=== PATIENT | female | born 1955 | race Caucasian/White ===

== ENCOUNTER 2022-11-29 14:47 | Outpatient (CLI) | payer MEDICARE, SELFPAY ==
[2022-12-02 08:50] LABS: Immunoglobulin A 103 mg/dL (70-320); TTG IGA AB <1.0 U/mL (<15.0)
== END 2022-11-29 14:48 | disposition home or self-care (01) ==
LOC: ANHGOSHLAB 14:51
PROVIDERS: PCP Family Medicine; Visit Provider Family Medicine
DX: R19.7 Diarrhea, unspecified (principal)
CPT/HCPCS: 36415; 82784; 86364

== ENCOUNTER 2022-12-03 09:16 | Outpatient (CLI) | payer MEDICARE, SELFPAY ==
[2022-12-03 11:34] LABS: Kit Draw Collected
== END 2022-12-03 09:17 | disposition home or self-care (01) ==
LOC: ANHGOSHLAB 09:18
PROVIDERS: PCP Family Medicine; Visit Provider Family Medicine
DX: E53.8 Deficiency of other specified B group vitamins (principal); E55.9 Vitamin D deficiency, unspecified; E78.5 Hyperlipidemia, unspecified; R19.7 Diarrhea, unspecified; Z79.899 Other long term (current) drug therapy
CPT/HCPCS: 36415

== ENCOUNTER 2022-12-03 11:19 | Outpatient (CLI) | payer MEDICARE, SELFPAY ==
[2022-12-03 13:14] LABS: Toxigenic C. Diff NEGATIVE (NEGATIVE)
== END 2022-12-03 11:20 | disposition home or self-care (01) ==
PROVIDERS: PCP Family Medicine; Visit Provider Family Medicine
DX: R19.7 Diarrhea, unspecified (principal)
CPT/HCPCS: 36415; 87045; 87177; 87209; 87427; 87493; 89055

== ENCOUNTER 2023-07-17 10:37 | Emergency (ER) | payer MEDICARE, SELFPAY ==
[2023-07-17 10:44] VITALS: BP 140/77; PULSE 74; RESP 16; TEMP 36.9; O2SAT 100
--- NOTE | 2023-07-17 10:56 | ED.GENADULT ---
HPI - General Adult General Chief complaint: Urogenital-Female Stated complaint: Bladder Infection Symptoms Source: patient, RN notes reviewed and old records reviewed Mode of arrival: ambulatory Limitations: no limitations History of Present Illness HPI narrative: 68-year-old female presents to [facility] with complaints burning with urination, urgency, frequency that started overnight. Patient states he is having some lower abdominal pain. Patient denies back pain, fever, vomiting. Related Data Home Medications Medication Instructions Recorded Confirmed Lactobacillus 1 cap PO DAILY 11/29/22 07/17/23 acidophil,plantar-Bifido no.7 15 billion cell capsule (up4 Probiotics Adult) multivitamin 1 tablet PO DAILY 11/29/22 07/17/23 mecobalamin (vitamin B12) 1,000 1,000 mcg PO DAILY 06/22/23 07/17/23 mcg chewable tablet Allergies Allergy/AdvReac Type Severity Reaction Status Date / Time latex Allergy Unknown Skin Verified 07/17/23 10:51 Reaction levofloxacin Allergy Unknown upset Verified 07/17/23 10:51 stomach NSAIDS (Non-Steroidal Allergy Unknown stomach Verified 07/17/23 10:51 Anti-Inflamma pain Penicillins Allergy Unknown Skin Verified 07/17/23 10:51 Reaction Sulfa (Sulfonamide Allergy Unknown Skin Verified 07/17/23 10:51 Antibiotics) Reaction Review of Systems Constitutional: Constitutional: Reports no additional constitutional complaints, Denies body ache(s), Denies chills, Denies fatigue, Denies fever(s) and Denies headache(s) Eyes: Eyes: Reports no additional eye complaints and Denies blurry vision ENT: Reports system reviewed and no additional complaints, except as documented, Denies vertigo, Denies dizziness, Denies ear discharge, Denies otalgia, Denies facial pain, Denies headache(s), Denies nasal congestion, Denies nasal discharge, Denies sinus pain, Denies sinus pressure and Denies sore throat Cardiovascular: Cardiovascular: Reports no additional cardiovascular complaints, Denies chest pain, Denies chest pain at rest, Denies rapid heart rate and Denies dyspnea Respiratory: Respiratory: Reports no additional respiratory complaints, Denies chest congestion, Denies cough, Denies pain on inspiration, Denies pain with cough and Denies dyspnea Gastrointestinal: Gastrointestinal: Reports abdominal pain, Denies diarrhea, Denies nausea and Denies vomiting Genitourinary: Genitourinary: Reports nocturia, Reports dysuria and Reports urinary urgency Integumentary/Breasts: Skin/Breast: Denies rash Neurologic: Reports system reviewed and no additional complaints, except as documented, Denies vertigo, Denies dizziness and Denies headache(s) Endocrine: Endocrine: Denies fatigue PMFSH Past Medical History Medical History Herpes zoster with unspecified nervous system complication History of duodenal ulcer 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 Hyperlipemia Peripheral vertigo, unspecified Sarcoidosis Ulcer Surgical History Surgical History H/O eye surgery (~1974) right eye 1957 Strabismus History of cholecystectomy (~2002) Hx of tonsillectomy (~1963) Family History Family History Mother Diabetes mellitus Thyroid disorder Father Cancer Depression Anxiety Sibling Diabetes mellitus Grandparent Cancer Social History Social History Social History: Caffeine- decaf tea Smoking status: Never smoker Alcohol intake: current Alcohol use details: red wine Substance use: never Substance use type: does not use Lack of Transportation: No Lack of Food: Never True Current Housing: I Have Housing Concerned About Future Housing: No Difficulty Paying Gas/Electric Bills: No Difficulty Paying for Meds: No Currently Unemploye
== END 2023-07-17 11:07 | disposition home or self-care (01) ==
PROVIDERS: Emergency Provider Registered Nurse; PCP Family Medicine
DX: N39.0 Urinary tract infection, site not specified (principal); E78.5 Hyperlipidemia, unspecified; Z79.899 Other long term (current) drug therapy
CPT/HCPCS: 81003; 87086; 99213; G0463

== ENCOUNTER 2023-09-16 11:33 | Emergency (ER) | payer MEDICARE, SELFPAY ==
[2023-09-16] VITALS (7 sets, daily range): BP systolic 107–166; BP diastolic 48–91; PULSE 72–85; RESP 15–17; TEMP 36.6–36.7; O2SAT 96–100
--- NOTE | ~2023-09-16 | XR_ITS ---
EXAMINATION: XR chest 2V 09/16/2023 12:19 INDICATION: Chest pain and shortness of breath PROCEDURE: 2 view chest COMPARISON: No prior studies for comparison. FINDINGS: The lungs are clear. The cardiomediastinal silhouette is within normal limits. There are no pleural effusions. There is no pneumothorax suspected. IMPRESSION: 1: NO ACUTE CARDIOPULMONARY DISEASE. Reviewed, dictated and finalized at location B.
--- NOTE | 2023-09-16 11:36 | ECG_ITS ---
SEE SCANNED COPY FOR CONFIRMED REPORT MTDD
[2023-09-16 12:03] LABS: Basophils Percent Auto 0.5 % (0.2-1.2); Eosinophils Absolute Auto 0.3 K/mm3 (0-0.3); Eosinophils Percent Auto 4.3 % (0-4.4); Hematocrit 46.1 % (37.0-47.0); Hemoglobin 15.6 g/dL (12.0-15.0); Immature Granulocyte Absolute 0.02 K/mm3 (0.00-0.031); Immature Granulocyte Percent A 0.3 % (0-0.5); Lymphocytes Absolute Auto 1.82 K/mm3 (0.9-3.2); Lymphocytes Percent Auto 31.3 % (18.3-44.2); Mean Corpuscular HGB Conc 33.8 g/dl (32-36); Mean Corpuscular Hemoglobin 31.6 pg (26-34); Mean Corpuscular Volume 93.3 fl (80-100); Mean Platelet Volume 10.1 fl (7.4-10.4); Monocytes Absolute Auto 0.3 K/mm3 (0.1-0.6); Monocytes Percent Auto 5.2 % (2.6-8.5); Neutrophils Absolute Auto 3.4 K/mm3 (1.3-6.7); Neutrophils Percent Auto 58.4 % (45.5-73.1); Platelet Count Result 204 k/mm3 (150-375); Red Blood Count 4.94 M/mm3 (4.2-5.4); Red Cell Distribution Width 13.3 % (11.5-14.5); White Blood Count 5.8 K/mm3 (4.5-10.0)
[2023-09-16 12:13] LABS: Alanine Aminotransferase 25 U/L (6-35); Albumin Level 4.9 g/dL (3.5-5.1); Alkaline Phosphatase 80 U/L (38-126); Anion Gap 8 mmol/L (4-12); Aspartate Amino Transferase 31 U/L (14-36); Bilirubin,Total 0.7 mg/dL (0.2-1.3); Blood Urea Nitrogen 14 mg/dL (7-17); Calcium 9.6 mg/dL (8.4-10.2); Carbon Dioxide 28 mmol/L (22-30); Chloride 101 mmol/L (98-107); Estimated CRCL calculation 69 ml/min; Estimated Glomerular Filt Rate > 60; Glucose 146 mg/dL (65-110); Lipase 216 U/L (23-300); Potassium 3.8 mmol/L (3.4-5.0); Sodium 137 mmol/L (137-145)
[2023-09-16 12:15] LABS: INR 0.9; Prothrombin Time 12.6 Seconds (11.1-14.7)
[2023-09-16 12:16] LABS: Partial Thromboplastin Time 29.8 Seconds (22.3-36.8)
[2023-09-16 12:25] LABS: Troponin I < 0.012 ng/mL (0.000-0.034)
--- NOTE | 2023-09-16 12:49 | ED.CHESTPAIN ---
HPI - Chest Pain General Chief Complaint: Chest Pain Stated Complaint: Chest Pain Time Seen by Provider: 09/16/23 11:59 History of Present Illness HPI narrative: 68-year-old female presenting to the emergency department for evaluation for an episode of generalized weakness and subsequent chest pain. Patient reports this morning she did have labs drawn this morning and had a very small breakfast. Patient states after having the labs drawn she had onset of some generalized weakness and shakiness. Patient decided that she probably needed to have food so she went to grab breakfast and while waiting for breakfast she had onset left-sided chest pain that radiated into her left arm, outpatient reports the pain lasted approximately 10 minutes. Upon arrival to the emergency department patient states that her symptoms have resolved and patient denies any current chest pain shortness of breath or generalized weakness. Patient states her only complaint at this time is that she does feel chilled. At time of evaluation patient is in no distress. Related Data Home Medications Medication Instructions Recorded Confirmed Lactobacillus 1 cap PO DAILY 11/29/22 07/20/23 acidophil,plantar-Bifido no.7 15 billion cell capsule (up4 Probiotics Adult) multivitamin 1 tablet PO DAILY 11/29/22 07/20/23 mecobalamin (vitamin B12) 1,000 1,000 mcg PO DAILY 06/22/23 07/20/23 mcg chewable tablet Allergies Allergy/AdvReac Type Severity Reaction Status Date / Time nitrofurantoin Allergy Intermediate Headache Verified 09/16/23 11:47 [From Macrobid] latex Allergy Unknown Skin Verified 09/16/23 11:47 Reaction levofloxacin Allergy Unknown upset Verified 09/16/23 11:47 stomach NSAIDS (Non-Steroidal Allergy Unknown stomach Verified 09/16/23 11:47 Anti-Inflamma pain Penicillins Allergy Unknown Skin Verified 09/16/23 11:47 Reaction Sulfa (Sulfonamide Allergy Unknown Skin Verified 09/16/23 11:47 Antibiotics) Reaction Review of Systems Review of Systems: All systems reviewed & are unremarkable except as noted in HPI and below PMFSH Past Medical History Medical History Herpes zoster with unspecified nervous system complication History of duodenal ulcer 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 Hyperlipemia Peripheral vertigo, unspecified Sarcoidosis Ulcer Surgical History Surgical History H/O eye surgery (~1974) right eye 1957 Strabismus History of cholecystectomy (~2002) Hx of tonsillectomy (~1963) Family History Family History Mother Diabetes mellitus Thyroid disorder Father Cancer Depression Anxiety Sibling Diabetes mellitus Grandparent Cancer Social History Social History Social History: Caffeine- decaf tea Smoking status: Never smoker Alcohol intake: current Alcohol use details: red wine Substance use: never Substance use type: does not use Lack of Transportation: No Lack of Food: Never True Current Housing: I Have Housing Concerned About Future Housing: No Difficulty Paying Gas/Electric Bills: No Difficulty Paying for Meds: No Currently Unemployed: No Education: Master's Degree or Higher Difficulty w/ Childcare or Family Care: No Living arrangements: with family Occupation/Education: retired Gender identity (if verbalized by the patient): Female Exam Narrative: APPEARANCE: Well appearing, no pain, no distress, well-nourished. HEAD: normocephalic, atraumatic. EYES: PERRLA/EOMI, conjunctivae clear. NOSE: Normal no drainage EARS:TMS clear with good light reflex. THROAT: Pharynx clear, no exudate. NECK: Supple. No adenopathy, no masses. RESPIRATORY: Airway patent, respirations nonlabored. Clear to auscultation bilaterally, no rales, rhonchi, wheezing. CARDIOVASCULAR: Regular rate and rhythm without murmurs rubs or gallops. ABDOMINAL: Soft, nontender, nondistended, normal bowel sounds MUSCULOSKELETAL: Moves all extremities. Strength/ROM intact, No edema, No calf tenderness. NEURO: Alert. Cranial nerves II through XII intact. Grossly intact SKIN: Warm, dry. Normal Color Course Vital Signs Vital signs: Vital Signs Temperature 97.9 F 09/16/23 11:40 Pulse Rate 81 09/16/23 11:40 Respiratory Rate 16 09/16/23 11:40 Blood Pressure 166/91 H 09/16/23 11:40 Pulse Oximetry 100 09/16/23 11:40 Oxygen Delivery Room Air 09/16/23 11:40 Temperature 98.0 F 09/16/23 15:30 Pulse Rate 72 09/16/23 15:30 Respiratory Rate 16 09/16/23 15:30 Blood Pressure 107/48 L 09/16/23 15:30 Pulse Oximetry 99 09/16/23 15:30 Oxygen Delivery Room Air 09/16/23 12:12 MDM - Chest Pain MDM Narrative Medical decision making narrative: 68-year-old female presenting to the emergency department for evaluation of brief episode of generalized weakness shakiness and left arm pain. Patient is afebrile with no leukocytosis and a stable hemoglobin patient's CMP has no acute abnormalities and patient was told troponin was negative. Chest x-ray shows no acute cardiopulmonary abnormality. EKG shows normal sinus rhythm with nonspecific ST changes. Patient did have negative serial troponins Differential Diagnosis Differential diagnosis: Likely pneumothorax, unstable angina pectoris, atypical chest pain, st elevation myocardial infarction and chest pain Lab Data 09/16/23 11:57 09/16/23 11:57 Labs: Lab Results 09/16/23 09/16/23 Range/Units 11:57 14:46 WBC 5.8 (4.5-10.0) K/mm3 RBC 4.94 (4.2-5.4) M/mm3 Hgb 15.6 H (12.0-15.0) g/dL Hct 46.1 (37.0-47.0) % MCV 93.3 (80-100) fl MCH 31.6 (26-34) pg MCHC 33.8 (32-36) g/dl RDW 13.3 (11.5-14.5) % Plt Count 204 (150-375) k/mm3 MPV 10.1 (7.4-10.4) fl Immature Gran % (Auto) 0.3 (0-0.5) % Neut % (Auto) 58.4 (45.5-73.1) % Lymph % (Auto) 31.3 (18.3-44.2) % [place] % (Auto) 5.2 (2.6-8.5) % Eos % (Auto) 4.3 (0-4.4) % Baso % (Auto) 0.5 (0.2-1.2) % Lymph # (Auto) 1.82 (0.9-3.2) K/mm3 [place] # (Auto) 0.3 (0.1-0.6) K/mm3 Eos # (Auto) 0.3 (0-0.3) K/mm3 Baso # (Auto) 0.0 (0.0-0.1) K/mm3 Abs Immat Gran (auto) 0.02 (0.00-0.031) K/mm3 Absolute Neuts (auto) 3.4 (1.3-6.7) K/mm3 Absolute Nucleated RBC 0.000 (0.0-0.012) K/mm3 Nucleated RBC % 0.0 (0.0-0.2) % PT 12.6 (11.1-14.7) Seconds INR 0.9 APTT 29.8 (22.3-36.8) Seconds Sodium 137 (137-145) mmol/L Potassium 3.8 (3.4-5.0) mmol/L Chloride 101 (98-107) mmol/L Carbon Dioxide 28 (22-30) mmol/L Anion Gap 8 (4-12) mmol/L BUN 14 (7-17) mg/dL Creatinine 0.60 L (0.7-1.0) mg/dL Estim Creat Clear Calc 69 ml/min Estimated GFR > 60 (59 - ) Glucose 146 H (65-110) mg/dL Calcium 9.6 (8.4-10.2) mg/dL Total Bilirubin 0.7 (0.2-1.3) mg/dL AST 31 (14-36) U/L ALT 25 (6-35) U/L Alkaline Phosphatase 80 (38-126) U/L Troponin I < 0.012 < 0.012 (0.000-0.034) ng/mL Total Protein 8.0 (6.3-8.2) g/dL Albumin 4.9 (3.5-5.1) g/dL Lipase 216 (23-300) U/L Discharge Plan Discharge Clinical Impression: Atypical chest pain Patient Disposition: Home, Self-Care Condition: Stable Instructions: Antibiotic Form, Chest Pain (ED) Additional Instructions: have close follow-up with primary care physician for additional outpatient cardiac testing. If you have any worsening symptoms then please call or return to the emergency department. Prescriptions: No Action up4 Probiotics Adult 15 billion cell capsule 1 cap PO DAILY multivitamin Tablet 1 tablet PO DAILY prednisone 10 mg tablet See Rx Instructions PO DAILY Qty: 42 0RF Rx Instructions: 6 po qdayx 2 days, 5 x 2days,4 x 2 d,3 x 2d,2 x 2d, 1 x 2 days PO daily; mecobalamin (vitamin B12) 1,000 mcg tablet,chewable 1,000 mcg PO DAILY Follow-up/Referrals: Tae Beebe MD [Primary Care Provider] - Quality HEART score for chest pain patients History: slightly suspicious ECG: normal Age: > or = to 65 years Risk factors: 1 or 2 risk factors Troponin: < or = to 1x normal limit Heart score: 3
--- NOTE | 2023-09-16 13:37 | ECG_ITS ---
SEE SCANNED COPY FOR CONFIRMED REPORT MTDD
--- NOTE | 2023-09-16 14:53 | ECG_ITS ---
SEE SCANNED COPY FOR CONFIRMED REPORT MTDD
[2023-09-16 15:15] LABS: Troponin I < 0.012 ng/mL (0.000-0.034)
== END 2023-09-16 15:51 | disposition home or self-care (01) ==
PROVIDERS: Family Medicine; Emergency Provider Emergency Medicine; PCP Family Medicine
DX: R07.89 Other chest pain (principal); E78.5 Hyperlipidemia, unspecified; D86.9 Sarcoidosis, unspecified; Z90.49 Acquired absence of other specified parts of digestive tract
CPT/HCPCS: 36415; 71046; 80053; 83690; 84484; 85025; 85610; 85730; 93005; 99284

== ENCOUNTER 2024-03-27 09:12 | Outpatient (NON) | payer MEDICARE, SELFPAY | END 2024-03-27 09:13 | disposition home or self-care (01) | LOC: ANHGOSHLAB 09:13 | PROVIDERS: PCP Family Medicine; Visit Provider Nurse Practitioner Family | DX: R39.9 Unspecified symptoms and signs involving the genitourinary system (principal) | CPT/HCPCS: 87086 ==

== ENCOUNTER 2024-04-10 10:42 | Emergency (ER) | payer MEDICARE, SELFPAY ==
[2024-04-10 10:44] VITALS: BP 134/57; PULSE 76; RESP 16; TEMP 36.7; O2SAT 100
--- NOTE | 2024-04-10 10:50 | ECG_ITS ---
Test Date: 2024-04-10 10:53:55 Measurements Intervals [place] Rate: 85 P: 52 VA: 148 QRS: -1 QRSD: 100 T: 34 QT: 343 QTc: 409 Interpretive Statements SINUS RHYTHM BASELINE ARTIFACT- I, II, III, AVR, AVL ,AVF, V1 NORMAL ECG No previous ECG available for comparison Electronically Signed On 04-10-2024 12:09:37 STUDIO GRIP by Jose Antonio Gomez D.O.
[2024-04-10 11:02] LABS: Glucose Point of Care 171 mg/dl (65-105)
[2024-04-10 11:27] LABS: Basophils Percent Auto 0.4 % (0.2-1.2); Eosinophils Absolute Auto 0.1 K/mm3 (0-0.3); Eosinophils Percent Auto 2.5 % (0-4.4); Hematocrit 45.5 % (37.0-47.0); Hemoglobin 15.1 g/dL (12.0-15.0); Immature Granulocyte Absolute 0.02 K/mm3 (0.00-0.031); Immature Granulocyte Percent A 0.4 % (0-0.5); Lymphocytes Absolute Auto 0.96 K/mm3 (0.9-3.2); Lymphocytes Percent Auto 17.1 % (18.3-44.2); Mean Corpuscular HGB Conc 33.2 g/dl (32-36); Mean Corpuscular Hemoglobin 31.3 pg (26-34); Mean Corpuscular Volume 94.4 fl (80-100); Mean Platelet Volume 9.9 fl (7.4-10.4); Monocytes Absolute Auto 0.3 K/mm3 (0.1-0.6); Neutrophils Absolute Auto 4.2 K/mm3 (1.3-6.7); Neutrophils Percent Auto 74.6 % (45.5-73.1); Platelet Count Result 183 k/mm3 (150-375); Red Blood Count 4.82 M/mm3 (4.2-5.4); Red Cell Distribution Width 13.2 % (11.5-14.5); White Blood Count 5.6 K/mm3 (4.5-10.0)
[2024-04-10 11:38] LABS: Alanine Aminotransferase 48 U/L (6-35); Albumin Level 4.7 g/dL (3.5-5.1); Alkaline Phosphatase 77 U/L (38-126); Anion Gap 8 mmol/L (4-12); Aspartate Amino Transferase 43 U/L (14-36); Bilirubin,Total 0.9 mg/dL (0.2-1.3); Blood Urea Nitrogen 13 mg/dL (7-17); Calcium 9.6 mg/dL (8.4-10.2); Carbon Dioxide 31 mmol/L (22-30); Chloride 104 mmol/L (98-107); Estimated CRCL calculation 61 ml/min; Estimated Glomerular Filt Rate > 60; Glucose 141 mg/dL (65-110); Sodium 143 mmol/L (137-145)
[2024-04-10 11:40] LABS: Prothrombin Time 13.1 Seconds (11.1-14.7)
[2024-04-10 11:41] LABS: Partial Thromboplastin Time 29.4 Seconds (22.3-36.8)
[2024-04-10 11:49] LABS: Troponin I < 0.012 ng/mL (0.000-0.034)
--- NOTE | 2024-04-10 11:56 | ED_ITS ---
HPI - General Adult General Chief complaint: Recheck/Abnormal Lab/Rx Stated complaint: numbness to face/weakness Time Seen by Provider: 04/10/24 10:54 History of Present Illness HPI narrative: 69-year-old female presents to the emergency department for evaluation for an episode hypertension. Patient was at her dentist office today when she did have some increased anxiety and then also had some subsequent increase in her blood pressure. Dentist office was concerned so they recommended the patient be evaluated in the emergency department. Upon arrival emergency department patient states her symptoms are improved. Patient denies any current chest pain or shortness of breath. Patient does have a recent history of CVA and does have some new speech deficit, this is unchanged from any baseline. Patient denies any new numbness weakness. Patient denies any falls or injuries. Patient denies any recent coughs colds or fevers. Patient denies any complaints at this time. Related Data Home Medications Medication Instructions Recorded Confirmed Lactobacillus 1 cap PO DAILY 11/29/22 03/27/24 acidophil,plantar-Bifido no.7 15 billion cell capsule (up4 Probiotics Adult) multivitamin 1 tablet PO DAILY 11/29/22 03/27/24 mecobalamin (vitamin B12) 1,000 1,000 mcg PO DAILY 06/22/23 03/27/24 mcg chewable tablet atorvastatin 80 mg tablet mg PO 03/27/24 03/27/24 clopidogrel 75 mg tablet mg PO 03/27/24 03/27/24 Allergies Allergy/AdvReac Type Severity Reaction Status Date / Time latex Allergy Unknown Skin Verified 02/01/24 14:42 Reaction levofloxacin Allergy Unknown upset Verified 02/01/24 14:42 stomach NSAIDS (Non-Steroidal Allergy Unknown stomach Verified 02/01/24 14:42 Anti-Inflamma pain Penicillins Allergy Unknown Skin Verified 02/01/24 14:42 Reaction Sulfa (Sulfonamide Allergy Unknown Skin Verified 02/01/24 14:42 Antibiotics) Reaction Review of Systems Review of Systems: All systems reviewed & are unremarkable except as noted in HPI and below PMFSH Past Medical History Medical History Herpes zoster with unspecified nervous system complication History of duodenal ulcer 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 Hyperlipemia Peripheral vertigo, unspecified Sarcoidosis Ulcer Surgical History Surgical History H/O eye surgery (~1974) right eye 8 Strabismus History of cholecystectomy (~2002) Hx of tonsillectomy (~1963) Family History Family History Mother Diabetes mellitus Thyroid disorder Father Cancer Depression Anxiety Sibling Diabetes mellitus Grandparent Cancer Social History Social History Social History: No caffeine Smoking status: Never smoker Alcohol intake: former Alcohol use details: red wine Substance use: never Substance use type: does not use Lack of Transportation: No Lack of Food: Never True Current Housing: I Have Housing Concerned About Future Housing: No Difficulty Paying Gas/Electric Bills: No Difficulty Paying for Meds: No Currently Unemployed: No Education: Master's Degree or Higher Difficulty w/ Childcare or Family Care: No Living arrangements: with family Occupation/Education: retired Gender identity (if verbalized by the patient): Female Exam Narrative: APPEARANCE: Well appearing, no pain, no distress, well-nourished. HEAD: normocephalic, atraumatic. EYES: PERRLA/EOMI, conjunctivae clear. NOSE: Normal no drainage EARS:TMS clear with good light reflex. THROAT: Pharynx clear, no exudate. NECK: Supple. No adenopathy, no masses. RESPIRATORY: Airway patent, respirations nonlabored. Clear to auscultation bilaterally, no rales, rhonchi, wheezing. CARDIOVASCULAR: Regular rate and rhythm without murmurs rubs or gallops. ABDOMINAL: Soft, nontender, nondistended, normal bowel sounds MUSCULOSKELETAL: Moves all extremities. Strength/ROM intact, No edema, No calf tenderness. NEURO: Alert. Cranial nerves II through XII intact. Grossly intact SKIN: Warm, dry. Normal Color Course Vital Signs Vital signs: Vital Signs Temperature 98.1 F 04/10/24 10:44 Pulse Rate 76 04/10/24 10:44 Respiratory Rate 16 04/10/24 10:44 Blood Pressure 134/57 L 04/10/24 10:44 Pulse Oximetry 100 04/10/24 10:44 Oxygen Delivery Room Air 04/10/24 10:44 Temperature 98.1 F 04/10/24 10:44 Pulse Rate 74 04/10/24 13:33 Respiratory Rate 18 04/10/24 13:33 Blood Pressure 108/60 04/10/24 13:33 Pulse Oximetry 99 04/10/24 13:33 Oxygen Delivery Room Air 04/10/24 10:44 Medical Decision Making MDM Narrative Medical decision making narrative: 69-year-old female presents to the emergency department for evaluation for hypertension. Patient was at the dental office when she felt she was having increased anxiety resulting in high blood pressure. Patient states that her symptoms have improved. Patient's blood pressure also improved in the emergency department. Patient is afebrile with no leukocytosis and hemoglobin of 15.1. INR 1.0 with no significant acute abnormalities on her CMP and negative troponin. Patient was negative for influenza RSV and for COVID. EKG showed normal sinus rhythm. Patient is neurologically intact and unchanged from her b aseline. Patient was not hypertensive upon arrival emergency department. Low concern for intracranial abnormality so CT scan was not ordered. Patient does feel back to her baseline. Differential Diagnosis Differential Diagnosis: Hypertension, ACS, pneumonia, anxiety Vital Signs Vital Signs: Vital Signs Temperature 98.1 F 04/10/24 10:44 Pulse Rate 76 04/10/24 10:44 Respiratory Rate 16 04/10/24 10:44 Blood Pressure 134/57 L 04/10/24 10:44 Pulse Oximetry 100 04/10/24 10:44 Oxygen Delivery Room Air 04/10/24 10:44 Temperature 98.1 F 04/10/24 10:44 Pulse Rate 74 04/10/24 13:33 Respiratory Rate 18 04/10/24 13:33 Blood Pressure 108/60 04/10/24 13:33 Pulse Oximetry 99 04/10/24 13:33 Oxygen Delivery Room Air 04/10/24 10:44 Lab Data Lab results reviewed: Yes I reviewed the patient's lab results. 04/10/24 11:17 04/10/24 11:17 Labs: Lab Results 04/10/24 04/10/24 04/10/24 Range/Units 10:59 11:17 12:00 WBC 5.6 (4.5-10.0) K/mm3 RBC 4.82 (4.2-5.4) M/mm3 Hgb 15.1 H (12.0-15.0) g/dL Hct 45.5 (37.0-47.0) % MCV 94.4 (80-100) fl MCH 31.3 (26-34) pg MCHC 33.2 (32-36) g/dl RDW 13.2 (11.5-14.5) % Plt Count 183 (150-375) k/mm3 MPV 9.9 (7.4-10.4) fl Immature Gran % (Auto) 0.4 (0-0.5) % Neut % (Auto) 74.6 H (45.5-73.1) % Lymph % (Auto) 17.1 L (18.3-44.2) % [place] % (Auto) 5.0 (2.6-8.5) % Eos % (Auto) 2.5 (0-4.4) % Baso % (Auto) 0.4 (0.2-1.2) % Lymph # (Auto) 0.96 (0.9-3.2) K/mm3 [place] # (Auto) 0.3 (0.1-0.6) K/mm3 Eos # (Auto) 0.1 (0-0.3) K/mm3 Baso # (Auto) 0.0 (0.0-0.1) K/mm3 Abs Immat Gran (auto) 0.02 (0.00-0.031) K/mm3 Absolute Neuts (auto) 4.2 (1.3-6.7) K/mm3 Absolute Nucleated RBC 0.000 (0.0-0.012) K/mm3 Nucleated RBC % 0.0 (0.0-0.2) % PT 13.1 (11.1-14.7) Seconds INR 1.0 APTT 29.4 (22.3-36.8) Seconds Sodium 143 (137-145) mmol/L Potassium 5.0 (3.4-5.0) mmol/L Chloride 104 (98-107) mmol/L Carbon Dioxide 31 H (22-30) mmol/L Anion Gap 8 (4-12) mmol/L BUN 13 (7-17) mg/dL Creatinine 0.70 (0.7-1.0) mg/dL Estim Creat Clear Calc 61 ml/min Estimated GFR > 60 (59 - ) Glucose 141 H (65-110) mg/dL POC Capillary Glucose 171 H (65-105) mg/dl Calcium 9.6 (8.4-10.2) mg/dL Total Bilirubin 0.9 (0.2-1.3) mg/dL AST 43 H (14-36) U/L ALT 48 H (6-35) U/L Alkaline Phosphatase 77 (38-126) U/L Troponin I < 0.012 (0.000-0.034) ng/mL Total Protein 8.0 (6.3-8.2) g/dL Albumin 4.7 (3.5-5.1) g/dL Influenza A (RT-PCR) Negative (Negative) Influenza B (RT-PCR) Negative (Negative) RSV (RT-PCR) Negative (Negative) SARS-CoV-2 RNA (RT-PCR) Negative (Negative) Discharge Plan Discharge Clinical Impression: Hypertension, Anxiety Patient Disposition: Home, Self-Care Condition: Stable Instructions: Antibiotic Form Additional Instructions: Have close follow-up with your primary care physician. If you have any worsening symptoms then please call or return to the emergency department. Prescriptions: No Action up4 Probiotics Adult 15 billion cell capsule 1 cap PO DAILY multivitamin Tablet 1 tablet PO DAILY clopidogrel 75 mg tablet PO atorvastatin 80 mg tablet PO guanfacine 1 mg tablet extended release 24 hr 1 mg PO DAILY Qty: 30 0RF mecobalamin (vitamin B12) 1,000 mcg tablet,chewable 1,000 mcg PO DAILY Follow-up/Referrals: Tae Beebe MD [Primary Care Provider] -
[2024-04-10 12:42] LABS: Influenza A QL RT-PCR Negative (Negative); Influenza B QL RT-PCR Negative (Negative); RSV RNA, RT-PCR Negative (Negative); SARS-CoV-2 RNA PCR Negative (Negative)
[2024-04-10 13:33] VITALS: BP 108/60; PULSE 74; RESP 18; O2SAT 99
== END 2024-04-10 13:36 | disposition home or self-care (01) ==
PROVIDERS: Emergency Provider Emergency Medicine; PCP Family Medicine
DX: I10 Essential (primary) hypertension (principal); R41.9 Unspecified symptoms and signs involving cognitive functions and awareness; E78.5 Hyperlipidemia, unspecified; Z20.822 Contact with and (suspected) exposure to COVID-19; I69.328 Other speech and language deficits following cerebral infarction
CPT/HCPCS: 36415; 80053; 82948; 84484; 85025; 85610; 85730; 87637; 93005; 99284

== ENCOUNTER 2024-06-25 09:00 | Outpatient (RCR) | payer MEDICARE, SELFPAY ==
--- NOTE | 2024-04-02 15:41 | STOPEVAL1 ---
Assessment and note entered by Fabiana Bell, [employer] P[employer]ER Evaluation Information Subjective Information Patient reports, I cannot speak very well. I had it (COVID) May 20 and it's gotten worse, after COVID. When questioned about that, she stated that COVID is the reason why she is having trouble speaking. Patient reports she and went to [place] in September of 2023 and they both caught flu and she feels that her speech worsened with the flu this summer. She has not had previous therapy for this issue. When asked to describe her speech issues, she stated, When I get to the middle of a sentence, sometimes I don't even know what I'm talking about. and patient both report communication is better in the morning, deteriorating throughout the day. They denied issues with understanding communication but state it is more an issue with expressing. It can be described as difficulty thinking of words, knowing the word but not able to think of it. Patient indicated she feels she talks a lot less, that people can't hear me. Patient had CT scan and then [facility] for an MRI but found nothing definitive. Had been diagnosed with a spine issue since 2011, but unsure if that is related to speech disturbance. Reported Pain Level Pain Score 0: Self Report Assessment ST Clinical Summary LANGUAGE/SPEECH EVALUATION This patient was seen for a speech and language evaluation at the request of her physician. Patient's reports overall communication skills have decreased significantly in the past year and he is highly concerned with her ability to communicate. Patient reports she feels her ability to recall words and put her thoughts into words has decreased since having COVID in 2021, and then an illness during their [place] trip this past September. Patient's speech and language were assessed this date. Patient exhibited higher-level auditory comprehension/processing issues characterized as decreased ability to recall comprehend and recall information in moderate to complex length questions and simple to moderate level stories. She also exhibited significant difficulty with confrontational naming of common objects but those we do not use as often as others. For example, she could name a spoon but not a funnel. Patient will be seen twice weekly for 10 treatment sessions to address moderate to higher-level receptive/expressive language skills. Additionally, she will be instructed in the use of laryngeal adduction exercises for improved vocal loudness. Patient and voiced and demonstrated good understanding of results and recommendations. Plan of Care Interventions Treatment of Language,Treatment of Voice ST Services Indicated Yes Treatment Frequency and 2x/week x 10 visits. Duration These treatments will address the objective and functional deficits as defined above. The patient will be advanced safely and appropriately in order for the patient to progress towards his/her prior level of function. Additional exercises will be introduced and as well as a comprehensive home exercise program upon discharge, if needed, ?to ensure carryover of functional gains achieved in the clinic. This treatment plan has been reviewed and agreement upon by the patient.
--- NOTE | 2024-04-23 10:51 | OPREHPOC ---
Outpatient Therapy Plan of Care This is a Multidisciplinary Plan of Care that may contain components documented by all disciplines (PT, OT, and ST.) ST Problem 1 ST Problem #[address] Goal 1 Goal / Goal Update 1. Patient will voice and demonstrate understanding of anatomy and physiology related to communication impairment, cognitive impairment, treatment plan, home exercise program, compensatory programs, and risks and benefits related to direct Speech Therapy tasks. Target Visit [address] Problem #[address] Goal 1 Goal / Goal Update Receptive Language: 1. Respond to moderate/complex yes/no questions with 90% accuracy. 2. Respond to 3-step to complex directives with 90 % accuracy. 3. Respond to simple/moderate/complex paragraph level information with 90% accuracy. Target Visit [address] Problem #[address] Goal 1 Goal / Goal Update Expressive Language/Speech/Voice 1. Complete divergent naming task by naming 3-4 items per common category with 80% acc. 2. Complete convergent naming task with 80% acc. 3. Name common pictured objects/actions with 80% acc. using minimal phonemic and sentence cues by therapist. 4. Offer 3-5 descriptive words/phrases per common object using therapist verbal/visual cueing as needed. 5. Complete association tasks to facilitate recall of object names/descriptions 80% acc. 6. Sustain ah x 10 seconds with loudness of 80 decibels or above 80% of the time. 7. Participate in sentence repetition task with loudness of 77 decibels or above 80% of the time. 8. Use strategies to facilitate recall of words and thoughts so that hesitations/disruptions occur less than 20% of the time during conversation. Target Visit 10
--- NOTE | 2024-05-03 11:26 | STOPPROG ---
Assessment and note entered by Fabiana Bell, EVENT MANAGER Assessment ST Clinical Summary PROGRESS SUMMARY AND TREATMENT NOTE Patient has been seen for an initial speech/ language evaluation and 7 treatment sessions focusing on auditory comprehension and verbal expression including word-retrieval, and also on memory/recall. Patient has attended regularly and exhibits good response to therapy tasks. Patient, herself, reports that on some days, she has difficulty thinking of words and thoughts and difficulty expressing them, and difficulty remembering details. Patient bought a book about pronouns from [employer] and reported significant difficulty with identifying which pronoun goes with item, and reported that patient is not using pronouns verbally; he feels that this is connected to her loss of words. Therapist asked how he feels about patient's ability to listen to and follow directions, and to pay attention to conversation. reports he feels the patient's ability to listen to, attend, and stay focused during conversation is good; he was surprised when therapist offered two verbal, moderate length stories and patient forgot details several details in one of the two stories presented. does report that patient is now attempting to speak more loudly (back at a normal level as compared to her earlier quiet voice), during conversation and is attempting to get his attention before speaking in order to allow for patient to hear and respond to her appropriately. Today the patient was presented with a variety of receptive/expressive language activities: 1. Respond to moderate/complex yes/no questions with 90% accuracy. Moderate: 80% acc. General complex yes/no questions: remains at 90% acc. Continue this goal. 2. Respond to 3-step to complex directives with 90 % accuracy: 100% acc. MET and discontinue this goal. 3. Respond to simple/moderate/complex paragraph level information with 90% accuracy: 60% acc. more difficulty with moderate length but complex information. Continue this goal. Expressive Language/Speech/Voice 1. Complete divergent naming task by naming 3-4 items per common category with 80% acc.: simple, common category: 100% acc. Less familiar, or with two features (things that are SMALL and HARD): 70% acc. Had difficulty becoming creative with responses, better with concrete responses. Continue this goal. 2. Complete convergent naming task with 80% acc.: Simple: 100% acc. Add less familiar, more abstract clues. Continue this goal. 3. Name common pictured objects/actions with 80% acc. using minimal phonemic and sentence cues by therapist: Common items: 90% acc. Continue this goal with less common items. 4. Offer 3-5 descriptive words/phrases per common object using therapist verbal/visual cueing as needed: varies, 60-80% acc. Continue this goal. 5. Complete association tasks to facilitate recall of object names/descriptions 80% acc.: varies, 60 -80% acc. continue this goal. 6. Sustain ah x 10 seconds with loudness of 80 decibels or above 80% of the time: Goal achieved and discontinued. 7. Participate in sentence repetition task with loudness of 77 decibels or above 80% of the time. Not initiated; initiate this next period. 8. Use strategies to facilitate recall of words and thoughts so that hesitations/disruptions occur less than 20% of the time during conversation: Not directly initiated; initiate this next period. Due to the severity of her deficits including some days when patient is barely able to speak, and other days when she can speak but have difficulty comprehending moderate to complex information and expressing her thoughts, she will be seen for three times weekly for 10 visits from this session to further address receptive/expressive language skills. Plan of Care Interventions Treatment of Language ST Services Indicated Yes Treatment Frequency and 3x/weekly x 10 visits Duration These treatments will address the objective and functional deficits as defined above. The patient will be advanced safely and appropriately in order for the patient to progress towards his/her prior level of function. Additional exercises will be introduced and as well as a comprehensive home exercise program upon discharge, if needed, ?to ensure carryover of functional gains achieved in the clinic. This treatment plan has been reviewed and agreement upon by the patient.
--- NOTE | 2024-06-01 13:12 | STOPPROG ---
Assessment and note entered by Fabiana Bell, EXPERIMENTAL MACHINIST Assessment ST Clinical Summary PROGRESS SUMMARY AND TREATMENT SUMMARY The patient has been seen an initial evaluation and treatment sessions for word-finding, memory, and speech intelligibility. Patient reports that speech therapy has been beneficial from suggesting she use the organ to practice vocalizing, and that the speech therapy homework has engaged her. reports that having direct Speech Therapy has been significantly beneficial from having to address speech, language, and memory tasks directly and that leaving the home to attend sessions has been helpful for both her ability to complete tasks and to keep her from becoming depressed over her communication situation. When asked if she feels her ability to communicate her thoughts has improved, she reports, Some days I get it and some days I don't, (improved communication). reports that patient's communication has improved however he states he does not feel she has made the progress he is hoping for by time of discharge. stated that her reading has been improving although there are some words she does not recognize and some words she has trouble saying aloud. He feels that when she has practiced over-exaggerating her vocal loudness/being forceful, that that also has tremendously improved his ability to follow and understand her. Patient and both indicated that Speech Therapy has been extremely beneficial and they want to continue. Patient reports that she can begin a sentence and then stop when she reaches the specific words she wants to use or the thought she wants to communicate. agreed with patient's thought, that her biggest challenge is trying to come up with words, that when presented with tasks that offer no cueing, she still has significant difficulty with word retrieval. Patient will continue in skilled Speech Therapy 1- 3x weekly for 10 visits to further address receptive/expressive language. The [facility] Adult Language Evaluation was re-administered. Patient continues to exhibit issues with both receptive and expressive language although tends to say that she is only having trouble with word-finding. She had difficulty responding to several, varied length yes/no questions and difficulty recalling information in short to lengthy paragraphs. Patient also exhibited difficulty responding to simple wh-questions, describing function of objects and creating cohesive, coherent sentences given single words. Given the Cookie Jar Theft picture from the [facility] Evaluation, patient used minimal complete sentences with very brief, superficial comments about the actions in the picture. 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 She performed better in specific word-finding tasks including confrontational naming of common items and also less common but familiar pictured items. She exhibited more difficulty with comprehending complex paragraph stories, open-ended cued speech, and open-ended but simple wh-questions. Given open-ended cued speech, therapist stated, I bought a dozen... and patient hesitated and then said, bananas. This was counted against her as we do not usually by a dozen bananas at a time. Another example was, For supper, we ate... and patient stated, apple. This was counted against her as it is not normally a supper item, nor is it plural when placed with we. Results suggest patient would benefit from continued Speech Therapy however additional testing by physicians might be beneficial in determining the cause of patient's communication difficulties. Continue 1-3 times weekly to address goals. Plan of Care Interventions Treatment of Language ST Services Indicated Yes Treatment Frequency and 1-3x/week Duration These treatments will address the objective and functional deficits as defined above. The patient will be advanced safely and appropriately in order for the patient to progress towards his/her prior level of function. Additional exercises will be introduced and as well as a comprehensive home exercise program upon discharge, if needed, ?to ensure carryover of functional gains achieved in the clinic. This treatment plan has been reviewed and agreement upon by the patient.
--- NOTE | 2024-07-02 10:18 | PCSTNOTE ---
This treatment is being continued on visit number [id number]. Please see documentation on both accounts to view progress. Completed interventions, outcomes, and problems have been marked as Inactive to facilitate the copying of the Care plan routine for recurring accounts.
== END 2024-06-29 08:36 | disposition home or self-care (01) ==
LOC: ANHST 09:00
PROVIDERS: PCP Family Medicine
DX: F80.2 Mixed receptive-expressive language disorder (principal); G45.9 Transient cerebral ischemic attack, unspecified
CPT/HCPCS: 92507; 92523

== ENCOUNTER 2024-07-20 07:55 | Outpatient (CLI) | payer MEDICARE, SELFPAY ==
--- OUTSIDE RECORDS SUMMARY | 2024-07-20 08:00 | XMS_ITS | Clinical Summary ---
Author Organization [facility] Address [facility] [place] [address] Care Team Providers Care Technical Sales Representative Name Role Phone Tae Beebe MD Primary Care Provider [phone] Allergies Active Allergy Reactions Criticality Noted Date Comments Penicillins Rash Low 12/04/2022 Sulfa Antibiotics Other (see comment) Denise- Niko syndrome Medications loperamide (IMODIUM) 2 MG capsule Take 1 capsule (2 mg total) by mouth 4 (four) times daily as needed for Diarrhea. Active Encounters Date Type Department Care Team Description 05/31/2024 7:10 AM AIRPORT OPERATIONS SUPERVISOR Laboratory Only [facility] [address] [place] [address] Sergio Clinton MD 05/31/2024 Travel from Last 3 Months Family History Medical History Relation Comments Breast Cancer Neg Hx Social History Tobacco Use Types Packs/Day Years Used Date Smoking Tobacco: Never Smokeless Tobacco: Never Tobacco Cessation:Counseling Given: Not Answered Alcohol Use Standard Drinks/Week Comments Not Currently 0 (1 standard drink = 0.6 oz pur e alcohol) 2 glasses of wine per month Comments Unknown Sex and Gender Information Value Date Recorded Sex Assigned at Not on file Legal Sex Female 4:21 PM CDT Gender Identity Not on file Sexual Orientation Straight 04/26/2022 11 :58 AM AIRPORT OPERATIONS SUPERVISOR Last Filed Vital Signs Vital Sign Reading Time Taken Comments Blood Pressure 127/73 03/16/2024 8:30 PM CDT Pulse 83 03/16/2024 8:30 PM CDT Temperature 36.6 C (97.8 F) 03/16/2024 2:16 PM CDT Respiratory Rate 15 03/16/2024 8:30 PM CDT Oxygen Saturation 96% 03/16/2024 8:30 PM CDT Inhaled Oxygen Concentration - - Weight 64.9 kg (143 lb) 03/16/2024 2:16 PM CDT Height 157.5 cm (5' 2 ) 03/16/2024 2:16 PM CDT Body Mass Index 26.16 03/16/2024 2:16 PM CDT Plan of Treatment Health Maintenance Due Date Last Done Comments Colorectal Cancer Screening Colonoscopy (10 Years) 1955 Hepatitis C 02/24/1974 DTaP, Tdap and Td Vaccines (1 - Tdap) 02/24/1975 Zoster Vaccines (1 of 2) 02/24/2006 Annual Medicare Wellness Visit 02/24/2021 Pneumococcal Vaccine: 65+ Years (1 of 1 - PCV) 02/24/2021 COVID-19 Vaccine (3 - season) 2024 08/12/2020, 07/03/2020 Influenza Adult (#1) 2024 Mammogram Screening 08/23/2025 08/24/2023, 05/03/2022, 06/01/2016, Additional history exists RSV Immunization or 60+ Years (1 - 1-dose 75+ series) 02/24/2031 Dexa Scan (General) Completed 05/03/2022 Meningococcal B Vaccine Aged Out No l onger eligible based on patient's age to complete this topic Meningococcal Vaccine Aged Out No edmundo tammie eligible based on patient's age to complete this topic RSV Immunizations Under 20 Months Aged Out No longer eligible based on patient's age to complete this topic Procedures Procedure Name Priority Date/Time Associated Diagnosis Comments LIPID PANEL Routine 05/31/2024 7:15 AM AIRPORT OPERATIONS SUPERVISOR MG SCREENING W MORE EDUARDO DIGI Routine 08/24/2023 8:32 AM CDT Visit for screening mammogram BONE DENSITY/DEXA Routine 05/03/2022 1:0 9 PM AIRPORT OPERATIONS SUPERVISOR Asymptomatic postmenopausal state from Last 3 Months or Most Recently Relevant to Health Maintenance Results * LIPID PANEL (05/31/2024 7:15 AM AIRPORT OPERATIONS SUPERVISOR) CHOLESTEROL 131 <200.0 MG/DL 05/31/2024 8:08 AM [facility] TRIGLYCERIDES 96 <150 MG/DL 05/31/2024 8:08 AM [facility] HDL 50 >40.0 MG/DL 05/31/2024 8:08 AM [facility] LDL (CALCULATED) 62 <100 MG/DL 05/31/19 8:08 AM [facility] NON HDL CHOLESTEROL 81 <130 MG/DL 05/31 8:08 AM [facility] CHOL/HDL RATIO 2.6 0.0 - 4.5 05/31/2024 8:08 AM [facility] VLDL CALCULATION 19 5 - 55 MG/DL 05/31/2024 8:08 AM [facility] LIPID INTERPRETATION 05/31/2024 8:08 AM [facility] Comment: [facility] CONCENSUS REPORT RECOMMENDATIONS: ADULT CHILD LOW RISK: CHOLESTEROL <200 <170 TRIGLYCERIDE <150 --- HDL >=60 --- LDL <100 <110 BORDERLINE: CHOLESTEROL 200-239 170-199 TRIGLYCERIDE 150-199 --- HDL 40-59 --- LDL 100-159 110-129 HIGH RISK: CHOLESTEROL >=240 >=200 TRIGLYCERIDE >=200 --- HDL <40 --- LDL >=160 >=130 05/31/2024 7:15 AM AIRPORT OPERATIONS SUPERVISOR us Sergio Clinton MD LABORATORY Final Result [facility] [address] [place] [address], [place] [phone] * MG SCREENING W MORE EDUARDO DIGI (08/24/2023 8:32 AM CDT) Anatomical Region Laterality Modality Breast Bilateral Mammography 08/24/2023 8:38 AM CDT Narrative 08/24/2023 8:54 AM CDT EXAMINATION: Digital bilateral screening mammogram with 3-D tomosynthesis EXAM DATE/TIME: 08/24/2023 8:15 AM REASON FOR EXAM: Annual COMPARISON: 06/01/2016. 05/03/2022 Technique: Digital screening mammography of both breasts was performed in addition to 3-D Tomosynthesis technique. This study was read with the assistance of a computer-aided detection system. Tissue density: The breast tissue is almost entirely fatty. Findings: Stable benign lymph node in upper outer quadrant of the right breast. There is no new focal asymmetry, dominant mass lesion, area of skin thickening, or cluster of suspicious appearing calcifications in either breast to suggest malignancy. ===== IMPRESSION: ===== 1. Stable mammographic appearance with no new findings to suggest malignancy in either breast. Assessment: ACR BI-RADS 1 - NEGATIVE Recommendation: 1:Routine Screening Bilateral Comments: Ordered By: CAROLINA FRENCH Interpreted By: Porfirio Poe, 08/24/2023 8:38 AM us Carolina French MD MAMMO Final Result * BONE DENSITY/DEXA (05/03/2022 1:09 PM AIRPORT OPERATIONS SUPERVISOR) Anatomical Region Laterality Modality Bone Bone Density 05/03/2022 1:30 PM AIRPORT OPERATIONS SUPERVISOR Narrative 05/03/2022 1:31 PM AIRPORT OPERATIONS SUPERVISOR IMAGING STUDIES: BONE DENSITY/DEXA DATE: 05/03/2022 12:46 PM CLINICAL HISTORY: Asymptomatic postmenopausal state . 67-year-old female with menopause at age 52. No stated calcium therapy. FINDINGS: LUMBAR SPINE L2-L4: BMD: 1.144 g/sq cm T-SCORE: 0.6 WHO CLASSIFICATION: Normal young adult range FRACTURE RISK: Very low LEFT FEMORAL NECK: BMD: 0.882 T-SCORE: 0.3 WHO CLASSIFICATION: Young adult range FRACTURE RISK: Very low Recommendation. Possible instigation of calcium replacement therapy with repeat imaging in 2 years Ordered By: ZEYNEP ADAMS Interpreted By: Porfirio Poe, 05/03/2022 1:30 PM Procedure Note Milad Poe MD - 05/03/2022 IMAGING STUDIES: BONE DENSITY/DEXA DATE: 05/03/2022 12:46 PM CLINICAL HISTORY: Asymptomatic postmenopausal state . [id number] female with menopause at age 52. No stated calcium therapy. FINDINGS: LUMBAR SPINE L2-L4: BMD: 1.144 g/sq cm T-SCORE: 0.6 WHO CLASSIFICATION: Normal young adult range FRACTURE RISK: Very low LEFT FEMORAL NECK: BMD: 0.882 T-SCORE: 0.3 WHO CLASSIFICATION: Young adult range FRACTURE RISK: Very low Recommendation. Possible instigation of calcium replacement therapy withrepeat imaging in 2 years Ordered By: ZEYNEP ADAMS Interpreted By: Porfirio Poe, 05/03/2022 1:30 PM Zeynep Adams METAL FURNITURE REPAIRER DEXA Final Resul t from Last 3 Months or Most Recently Relevant to Health Maintenance Insurance [employer] Care Teams Technical Sales Representative Relationship Specialty Start Date End Date Tae Beebe MD [facility] [address] [address] PCP - General FAMILY PRACTICE 12/12/23
--- OUTSIDE RECORDS SUMMARY | 2024-07-20 08:00 | XMS_ITS | Referral Summary ---
Author Organization [facility] Address [address] [place] [address] Care Team Providers Care Deputy Commissioner Name Role Phone Tae Beebe MD Primary Care Provider [phone] Encounters Date Type Department Care Team Description 04/30/2024 11:00 AM INK GRINDER [facility] [address] [facility] [address] [place] [id number] Silviano Castro MD Speech disturbance, unspecified type (Primary Dx); Complicated migraine; Numbness; Weakness; Ptosis of right eyelid from Last 3 Months Allergies Active Allergy Reactions Criticality Noted Date Comments Latex Penicillins Sulfa (Sulfonamide Antibiotics) Other (See comments) 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 Medications cyanocobalamin, vitamin B-12, (Vitamin B-12) 5,000 mcg tablet, sublingual 10/22/2011 Active atorvastatin (LIPITOR) 80 mg tablet Take 1 tablet (80 mg total) by mouth nightly 30 tablet 03/18/2024 Active clopidogreL (PLAVIX) 75 mg tablet Take 1 tablet (75 mg total) by mouth daily 30 tablet 03/19/2024 Active ALPRAZolam (XANAX) 0.25 mg tablet Take by mouth 3 (three) times a day as needed 04/11/2024 Active guanFACINE ER (INTUNIV) 1 mg tablet extended release 24 hr Take 1 tablet (1 mg total) by mouth daily 04/19/2024 Active sertraline (ZOLOFT) 50 mg tablet Take 1 tablet (50 mg total) by mouth daily 04/12/2024 Active Active Problems Problem Noted Date Diagnosed Date CVA (cerebrovascular acciden t due to intracerebral hemorrhage) 03/17/2024 Acute cystitis without hematuria 03/17/2024 Stroke-like symptom 03/17/2024 Essential hypertension 03/17/2024 Left sided numbness 03/17/2024 Brain fog 03/17/2024 Urinary tract infection without hematuria 2023 Elevated DHEA 08/18/2022 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 Hyperandrogenemia 07/25/2022 Cervical radiculopathy 06/22/2018 Chest pain 06/22/2018 Ptosis of eyelid 02/05/2014 Overview (09/02/2016): Ptosis Paresthesia 02/06/2013 Overview (09/02/2016): Paresthesias Thoracic back pain 02/06/2013 Overview (09/03/2016): Thoracic back pain Migraine 02/06/2013 Overview (09/03/2016): Migraine Resolved Problems Problem Noted Date Diagnosed Date Resolved Date 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 Patient does not drink Frequency of Binge Drinking Not on file 06/2023 Personal Safety Answer Date Recorded Have you ever been in or are you currently in a harmful physical or emotional relationship or is someone making you feel afraid or unsafe? Denies 03/16/2024 Comments No Sex and Gender Information Value Date Recorded Sex Assigned at Not on file Legal Sex Female 2:27 AM INK GRINDER Gender Identity Female 05/16/2022 7:13 AM INK GRINDER Sexual Orientation Straight 05/16/2022 7: 13 AM INK GRINDER 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 file Not on file Last Filed Vital Signs Vital Sign Reading Time Taken Comments Blood Pressure 132/80 04/30/2024 10:51 AM INK GRINDER Pulse 79 04/30/2024 10:51 AM INK GRINDER Temperature 36.5 C (97.7 F) 03/18/2024 12:08 PM CDT Respiratory Rate 16 04/30/2024 10:51 AM INK GRINDER Oxygen Saturation 96% 04/30/2024 10:51 AM INK GRINDER Inhaled Oxygen Concentration - - Weight 68 kg (150 lb) 04/30/2024 10:51 AM INK GRINDER Height 156.2 cm (5' 1.5 ) 04/30/2024 10:51 AM CS T Body Mass Index 27.88 04/30/2024 10:51 AM INK GRINDER Plan of Treatment Not on file Procedures Procedure Name Priority Date/Time Associated Diagnosis Comments SCREENING MAMMOGRAM BILATERAL W KODY Routine 06/01/2016 12:00 AM INK GRINDER from Last 3 Months or Most Recently Relevant to Health Maintenance Results * Screening Mammogram Bilateral W Kody (06/01/2016 12:00 AM INK GRINDER) Anatomical Region Laterality Modality Breast Bilateral Mammography 06/01/2016 3:57 PM INK GRINDER Narrative 06/14/2016 9:27 AM INK GRINDER - SCREENING MAMM W KODY BI BILATERAL DIGITAL SCREENING MAMMOGRAM 3D/2D WITH CAD: 06/01/2016 CLINICAL: Routine screening. Patient has no complaints. Comparison is made to exam dated: 12/31/2013 [facility]. There are scattered fibroglandular elements in both breasts. Current study was also evaluated with a Computer Aided Detection (CAD) system. No significant masses, calcifications, or other findings are seen in either breast. There has been no significant interval change. IMPRESSION: NEGATIVE There is no mammographic evidence of malignancy. A 1 year screening mammogram is recommended. The patient will be contacted by letter. Zoe Reyez M.D., cro/lewis:06/12/2016 08:58:57 letter sent: Normal Exam Mammogram BI-RADS: 1 Negative Radiologist: ZOE REYEZ Attending: Osei MEREDITH M.D. Requesting: Osei MEREDITH M.D. Requesting Requesting ID: [id number] Attending Attending ID: [id number] Completed Time: 06/01/2016 3:57 PM Dictated Time: N/A Transcribed Time: 06/14/2016 09:27 AM Signed by: ZOE REYEZ on 06/14/2016 09:27 AM Report To 1 ID: Report To 1 Name: , Report To 1 FAX: Report To 2 ID: Report To 2 Name: , Report To 2 FAX: Report To 3 ID: Report To 3 Name: , Report To 3 FAX: NextGen Order #: Procedure Note Provider, MD Josh - 10/05/2016 - SCREENING MAMM W KODY BI BILATERAL DIGITAL SCREENING MAMMOGRAM 3D/2D WITH CAD: 06/01/2016 CLINICAL: Routine screening. Patient has no complaints. Comparison is made to exam dated: 12/31/2013 [facility]. There are scattered fibroglandular elements in both breasts. Current study was also evaluated with a Computer Aided Detection (CAD) system. No significant masses, calcifications, or other findings are seen in either breast. There has been no significant interval change. IMPRESSION: NEGATIVE There is no mammographic evidence of malignancy. A 1 year screening mammogram is recommended. The patient will be contacted by letter. Zoe Reyez M.D. analyst microbiology lab/penrad:06/12/2016 08:58:57 letter sent: Normal Exam Mammogram BI-RADS: 1 Negative Radiologist: ZOE REYEZ Attending: Osei MEREDITH M.D. Requesting: Osei MEREDITH M.D. Requesting Requesting ID: [id number] Attending Attending ID: [id number] Completed Time: 06/01/2016 3:57 PM Dictated Time: N/A Transcribed Time: 06/14/2016 09:27 AM Signed by: ZOE REYEZ on 06/14/2016 09:27 AM Report To 1 ID: Report To 1 Name: , Report To 1 FAX: Report To 2 ID: Report To 2 Name: , Report To 2 FAX: Report To 3 ID: Report To 3 Name: , Report To 3 FAX: NextGen Order #: us Historical Provider MD [place] MAMMO PROCEDURES Sole l Result from Last 3 Months or Most Recently Relevant to Health Maintenance Insurance [facility] ADVANTRA [facility] [employer] AETNA [facility] ADVANTRA Advance Directives For more information, please contact: [phone] * Full Code (Latest Code Status on File) Date Activated Date Inactivated Comments 03/17/2024 12:12 AM 03/18/2024 9:23 PM * Full Code Date Activated Date Inactivated Comments 06/22/2018 6:10 PM 06/23/2018 8:26 PM Care Teams Deputy Commissioner Relationship Specialty Start Date End Date Tae Beebe MD PCP - General Family Medicine 09/07/22
--- OUTSIDE RECORDS SUMMARY | 2024-07-20 08:00 | XMS_ITS | Clinical Summary ---
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 OTHER SURGICAL HISTORY strabismus and amblyopia: right eye muscle surgery age 3 and age 20 OTHER SURGICAL HISTORY tonsillectomy age 7 OTHER SURGICAL HISTORY fibrocystic breast disease: left breast biopsy. LAPAROSCOPIC CHOLECYSTECTOMY laparoscopic cholecystectomy Medical History Medical History Date Comments Hx Other Medical cutaneous sarco idosis. Diagnosed by skin biopsy; Outcome: free of disease Hx Other Medical shingles, left V3 distribution Gastroesophageal reflux disease GERD Hx Other Medical strabismus and amblyopia; Outcome: poor vision OD Hx Other Medical fibrocystic carolyn ast disease Sarcoidosis of skin (CMS/HCC) GERD (gastroesophageal reflux disease) Gastric ulcer Family History Medical History Relation Name Comments Other Brother 1 high cholestrol ; Testicular cancer Brother 2 Cancer, te sticular; Schizophrenia Brother 3 Schizophrenia; Other Father frontal lobe br ain tumor; glioblastoma Father Hyperlipidemia Mother high choleste rol; Hypertension Mother Hypertension; Hypothyroidism Mother Other Mother hypothyroid; Other Sister uterine fibroid s; Relation Name Status Comments Brother 1 Brother 2 Brother 3 Father Mother Alive Sister Social History Tobacco Use Types Packs/Day Years [...] on file Legal Sex Female 2:27 AM ACETYLENE TORCH BURNER Gender Identity Female 05/16/2022 7:13 AM ACETYLENE TORCH BURNER Sexual Orientation Straight 05/16/2022 7: 13 AM ACETYLENE TORCH BURNER 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 file Not on file Obstetrics History Last Filed Vital Signs Vital Sign Reading Time Taken Comments Blood Pressure 132/80 04/30/2024 10:51 AM ACETYLENE TORCH BURNER Pulse 79 04/30/2024 10:51 AM ACETYLENE TORCH BURNER Temperature 36.5 C (97.7 F) 03/18/2024 12:08 PM CDT Respiratory Rate 16 04/30/2024 10:51 AM ACETYLENE TORCH BURNER Oxygen Saturation 96% 04/30/2024 10:51 AM ACETYLENE TORCH BURNER Inhaled Oxygen Concentration - - Weight 68 kg (150 lb) 04/30/2024 10:51 AM ACETYLENE TORCH BURNER Height 156.2 cm (5' 1.5 ) 04/30/2024 10:51 AM CS T Body Mass Index 27.88 04/30/2024 10:51 AM ACETYLENE TORCH BURNER Plan of Treatment Health Maintenance Due Date Last Done Comments Colon Cancer Screening-Colonoscopy 1955 Depression Screening 1955 Hepatitis C Screening 1955 Hepatitis B Screening 02/24/1974 Pneumococcal vaccine 65+ (1 of 1 - PCV) 02/24/2006 Zoster Vaccine (1 of 2) 02/24/2006 Well Visit 65+ 02/24/2021 Covid-19 Vaccine (5 - 2023-2 5 season) 2024 11/05/2021, 04/29/2021, 08/12/2020, Additional history exists Influenza Vaccine (#1) 2024 , 04/24/2021, 03/15/2020, Additional history exists Osteoporosis Screening-Bone Density Scan 05/03/2024 05/03/2022 Breast Cancer Screening-Mammogram 08/23/2024 08/24/2023, 08/24/2023, 05/03/2022, Additional history exists Fall Risk Assessment 03/18/2025 03/18/2024 DTaP/Tdap/Td Vaccine (2 - Td or Tdap) 04/12/2029 04/12/2019 Procedures Procedure Name Priority Date/Time Associated Diagnosis Comments SCREENING MAMMOGRAM BILATERAL W KODY Routine 06/01/2016 12:00 AM ACETYLENE TORCH BURNER from Last 3 Months or Most Recently Relevant to Health Maintenance Results * Screening Mammogram Bilateral W Kody (06/01/2016 12:00 AM ACETYLENE TORCH BURNER) Anatomical Region Laterality Modality Breast Bilateral Mammography 06/01/2016 3:57 PM ACETYLENE TORCH BURNER Narrative 06/14/2016 9:27 AM ACETYLENE TORCH BURNER - SCREENING MAMM W KODY BI BILATERAL DIGITAL SCREENING MAMMOGRAM 3D/2D WITH CAD: 06/01/2016 CLINICAL: Routine screening. Patient has no complaints. Comparison is made to exam dated: 12/31/2013 [facility]. There are scattered fibroglandular elements in both [...] Requesting: Osei MEREDITH M.D. Requesting Requesting ID: [id number] Attending Attending ID: [id number] Completed Time: 06/01/2016 3:57 PM Dictated Time: [...] Comparison is made to exam dated: 12/31/2013 [facility]. There are scattered fibroglandular elements in both [...] be contacted by letter. Zoe Reyez M.D. [facility]/penrad:06/12/2016 08:58:57 letter sent: Normal Exam Mammogram BI-RADS: 1 Negative Radiologist: ZOE REYEZ Attending: Osei MEREDITH M.D. Requesting: Osei MEREDITH M.D. Requesting Requesting ID: [id number] Attending Attending ID: [id number] Completed Time: 06/01/2016 3:57 PM Dictated Time: [...] Most Recently Relevant to Health Maintenance Insurance [facility] ADVANT [facility] AETNA [facility] ADVANTRA Advance Directives For more information, please contact: [phone] * Full Code (Latest Code Status on File) Date Activated Date Inactivated Comments 03/17/2024 12:12 AM 03/18/2024 9:23 PM * Full Code Date Activated Date Inactivated Comments 06/22/2018 6:10 PM 06/23/2018 8:26 PM Care Teams Accounting Manager Assistant Controller Relationship Specialty Start Date End Date Tae Beebe MD PCP - General Family Medicine 09/07/22
[2024-07-20 14:50] LABS: Add Urine Microscopic? YES; Appearance Urine Clear (Clear); Bacteria Urine None Seen /hpf; Bilirubin Urine Negative (Negative); Blood Urine Negative (Negative); Color Urine Yellow (Yellow); Glucose Urine UA Negative (Negative); Ketones Urine Negative (Negative); Leukocyte Esterase Ur 2+ LEU/UL (Negative); Nitrate Urine Negative (Negative); Non Pathogenic Casts 0-2; Protein Urine Negative (Negative); RBC Urine 0-2 /hpf (0-2); Specific Grav Ur 1.005 (1.001-1.035); Squamous Epithelial Cell Urine Occasional /hpf (Few); Urobilinogen Urine 0.2 mg/dL (<2.0); pH Urine 7.5 (5.0-9.0)
[2024-07-20 15:10] LABS: Alanine Aminotransferase 68 U/L (6-35); Albumin Level 4.5 g/dL (3.5-5.1); Alkaline Phosphatase 92 U/L (38-126); Anion Gap 12 mmol/L (4-12); Aspartate Amino Transferase 65 U/L (14-36); Bilirubin,Total 0.8 mg/dL (0.2-1.3); Blood Urea Nitrogen 18 mg/dL (7-17); Calcium 9.8 mg/dL (8.4-10.2); Carbon Dioxide 30 mmol/L (22-30); Chloride 100 mmol/L (98-107); Estimated Glomerular Filt Rate > 60; Glucose 96 mg/dL (65-110); Potassium 4.5 mmol/L (3.4-5.0); Sodium 142 mmol/L (137-145)
== END 2024-07-20 07:56 | disposition home or self-care (01) ==
PROVIDERS: PCP Family Medicine; Visit Provider Nurse Practitioner Family
DX: Z71.1 Person with feared health complaint in whom no diagnosis is made (principal); E78.5 Hyperlipidemia, unspecified; R41.89 Other symptoms and signs involving cognitive functions and awareness
CPT/HCPCS: 36415; 80053; 81001; 87086

== ENCOUNTER 2024-08-21 07:38 | Outpatient (CLI) | payer MEDICARE, SELFPAY ==
--- NOTE | ~2024-08-21 | MR_ITS ---
EXAMINATION: MR brain/brain stem wo/w con DATE: 08/21/2024 08:22 INDICATION: Aphasia TECHNIQUE: Magnetic resonance imaging (MRI) of the brain and brainstem was performed without and with 14 mL ProHance intravenous contrast. Sequences included sagittal and axial T1-weighted SE, axial dif fusion-weighted FS SE, axial T2*-weighted GRE, axial T2-weighted FLAIR, and axial T2-weighted FSE. Po stcontrast axial and coronal T1-weighted SE was obtained. Apparent diffusion coefficient (ADC) maps w ere created. COMPARISON: None. FINDINGS: There are no areas of restricted diffusion to suggest acute infarction. No intracranial hemorrhage or abnormal intracranial mass lesion. There are couple tiny foci of nonspecific white matter T2 hyperin tensity in the bilateral frontal lobes which is well within normal limits for age. There are no intra parenchymal signal abnormalities seen on the other pulse sequences. The ventricles are symmetric and normal in size. There are no abnormal extra-axial fluid collections. Flow voids are seen in the cereb ral arteries on the T2-weighted sequences consistent with their expected patency. Mild mucoperiosteal thickening in the bilateral ethmoid and maxillary sinuses. Visualized orbits and soft tissues are un remarkable. There are no areas of abnormal enhancement on the post contrast images. Likely L3 laminec magdiel. IMPRESSION: 1. Normal for age brain. No acute intracranial process or abnormally enhancing brain lesions. Reviewed, dictated and finalized at location B.
== END 2024-08-21 07:39 | disposition home or self-care (01) ==
LOC: MICIMG 07:39
PROVIDERS: PCP Family Medicine; Visit Provider Family Medicine
DX: R47.01 Aphasia (principal); G45.9 Transient cerebral ischemic attack, unspecified; R47.9 Unspecified speech disturbances
CPT/HCPCS: 70553; A9579

== ENCOUNTER 2024-09-26 15:00 | Outpatient (RCR) | payer MEDICARE, SELFPAY ==
--- NOTE | 2024-07-02 10:19 | PCSTNOTE ---
The treatment documented on this account is a continuation of the treatment documented on visit number [id number]. Please see documentation on both accounts to view progress. The Plan of Care has been transitioned and updated within the new A#. I have addressed and agree with the discipline specific Problems, Interventions, and Goals for the current certification period. Completed interventions, outcomes, and problems have been marked as Inactive to facilitate the copying of the Care plan routine for recurring accounts.
--- NOTE | 2024-07-24 12:46 | PCSTNOTE ---
Patient called & cancelled scheduled appointment on 07-23-24. Patient rescheduled for 07-25-24.
--- NOTE | 2024-08-13 11:32 | PCSTNOTE ---
Patient called & cancelled scheduled appointment this date due to illness.
--- NOTE | 2024-08-16 12:28 | BUSTOPEVAL1 ---
Assessment and note entered by Kira Rodriguez, ERP TECHNICAL LEAD Evaluation Information Assessment Status Progress Diagnosis G45.9 Transient Cerebral Ischemic attack, R47.9 speech disturbance unspecif Subjective Information Patient was referred for a skilled ST evaluation in the beginning of March 2024 due to an increase in difficulty with speech/language skills . Patient has completed a total of [address] treatment sessions since the initial evaluation on 04-02-24. Patient and report that they continue to notice a decline in overall speech/ language skills along with cognitive skills despite practicing skills daily. The patient continues to demonstrate significant difficulty attempting to name items, describe items, complete automatic and open ended sentences, describe pictures, along with participating in simple conversational tasks. The patient's reported that the patient often gets very frustrated when attempting to communicate and this has impacted them greatly over the past several months. Over the past [address] treatment sessions the patient has shown a decline in verbal expression skills along with auditory comprehension skills. Testing was completed during the session with results below. Reported Pain Level Pain Score 0: Self Report Pain Score 0: Self Report Pain Score 0: Self Report Pain Score 0: Self Report Pain Score 0: Self Report Pain Score 5: Self Report Pain Score 0: Self Report Pain Score 0: Self Report Assessment ST Clinical Summary Patient has completed a total of [address] treatment sessions for the treatment of speech/ language skills along with memory and auditory comprehension skills since the initial evaluation on 04-02-24. The patient overall has shown a decline in all areas of speech/language and cognition. Patient and both agree that they continue to see an overall decline in skills despite use of recommended aphasia language applications to target skills. Patient continues to present with less fluent speech and an increase in difficulty producing target words with appropriate articulation and volume. Patient has recently shown a decline in ability to use yes/no correctly with use of hand gestures to indicate wants/needs with when unable to produce target word. The [facility] Adult Language Evaluation was re-administered during the session this date with significant decline in overall skills. Patient continues to exhibit issues with both receptive and expressive language. reported an increase in difficulty with cognitive skills. Results are below: Patient has shown an overall decline in most areas of auditory comprehension including; Previous testing completed 05-31-24 Simple yes/no- previous 80%, current 80% Moderate yes/no- previous 100%, current 60% Complex yes/no- previous 80%, current 20% One step direction- previous 100%, current 100% two step direction- previous 100%, current 100% three step direction- previous 50%, current 0% comprehension of complex directives- previous 50%, current 0% Reading comprehension: deficits at the 8-10 word level, complex sentences and paragraph level. Patient has shown an overall decline in most areas of verbal expression including; Previous testing completed 1-2-25 Automatic speech- previous 100%, current 30% Single word imitation- previous 100%, current 50% Phrase imitation- previous 100%, current 60% Sentence imitation- previous 100%, current 0% Automatic cued speech- previous 100%, current 40% Open ended cued speech- previous 60%, current 0% WH questions- previous 80%, current 20% Confrontational naming- previous 90%, current 70% Higher level confrontational naming- previous 80%, current 33% Object function- previous 80%, current 0% Sentence formation- previous 40%, current 0% Sentence formation in spontaneous speech: previous moderate deficits, current severe deficits Connected speech- previous moderate deficits, current severe deficits Patient continues to present with increased difficulty in oral motor movement to produce target words/phrases along with decreased volume and poor articulation skills impacting overall speech intelligibility skills. 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 Results suggest patient would benefit from continued Speech Therapy however additional testing by physicians would be beneficial in determining the cause of patient's communication difficulties. Phone call was placed with patient's primary physician stating concerns ERP TECHNICAL LEAD is noting within treatment. Recommendation for skilled Speech Therapy to continue 1-2x weekly for 10 visits to further address receptive/expressive language. Plan of Care Interventions Treatment of Language Treatment Frequency and 1-2x/week for 10 visits Duration These treatments will address the objective and functional deficits as defined above. The patient will be advanced safely and appropriately in order for the patient to progress towards his/her prior level of function. Additional exercises will be introduced and as well as a comprehensive home exercise program upon discharge, if needed, ?to ensure carryover of functional gains achieved in the clinic. This treatment plan has been reviewed and agreement upon by the patient.
--- NOTE | 2024-08-20 10:01 | PCSTNOTE ---
Patient called & cancelled scheduled appointment this date due to difficulty with sleep overnight.
--- NOTE | 2024-09-03 16:19 | PCSTNOTE ---
Patient's appointment was cancelled this date due to AUTO TOP MECHANIC calling off for illness with a child.
--- NOTE | 2024-09-10 11:43 | PCSTNOTE ---
Patient's called & cancelled scheduled appointment this date due to patient currently in the hospital. He reported that she may be discharged soon they are currently keeping their Tuesday appointment at this time.
--- NOTE | 2024-09-12 15:23 | PCSTNOTE ---
Patient's called and cancelled appointment today due to patient being in the hospital. Review of documentation with possible transfer to neuro for myasthenia.
--- NOTE | 2024-09-24 10:05 | PCSTNOTE ---
Patient's called & cancelled scheduled appointment this date due to illness.
--- NOTE | 2024-10-01 12:31 | PCSTNOTE ---
This treatment is being continued on visit number [id number]. Please see documentation on both accounts to view progress. Completed interventions, outcomes, and problems have been marked as Inactive to facilitate the copying of the Care plan routine for recurring accounts.
== END 2024-09-30 23:59 | disposition home or self-care (01) ==
LOC: ANHST 15:00
PROVIDERS: PCP Family Medicine; Visit Provider Family Medicine
DX: F80.2 Mixed receptive-expressive language disorder (principal); F44.4 Conversion disorder with motor symptom or deficit; I69.328 Other speech and language deficits following cerebral infarction
CPT/HCPCS: 92507; 92526

== ENCOUNTER 2024-11-20 10:00 | Outpatient (RCR) | payer MEDICARE, SELFPAY ==
--- NOTE | 2024-10-01 12:32 | PCSTNOTE ---
The treatment documented on this account is a continuation of the treatment documented on visit number [id number]. Please see documentation on both accounts to view progress. The Plan of Care has been transitioned and updated within the new V#. I have addressed and agree with the discipline specific Problems, Interventions, and Goals for the current certification period. Completed interventions, outcomes, and problems have been marked as Inactive to facilitate the copying of the Care plan routine for recurring accounts.
--- NOTE | 2024-10-01 12:33 | PCSTNOTE ---
Patient's called & cancelled scheduled appointment this date but did not indicate the reason for cancelling.
--- NOTE | 2024-10-18 10:48 | PCSTNOTE ---
Patient called & cancelled scheduled appointment this date due to sick
--- NOTE | 2024-10-23 12:22 | OPREHPOC ---
Outpatient Therapy Plan of Care This is a Multidisciplinary Plan of Care that may contain components documented by all disciplines (PT, OT, and ST.) ST Problem 1 ST Problem #[address] Goal 1 Goal / Goal Update 1. Patient will voice and demonstrate understanding of anatomy and physiology related to communication impairment, cognitive impairment, treatment plan, home exercise program, compensatory programs, and risks and benefits related to direct Speech Therapy tasks. -continue goal with consistent carryover/ generalization of skills to home environment. Target Visit [address] Problem 2 ST Problem #[address] Goal 1 Goal / Goal Update Receptive Language: 1. The patient will respond to moderately difficult yes and no questions about her environment with 80% accuracy minimal cues. 2. the patient will follow 1 step directives with 80% accuracy minimal cue Target Visit [address] Goal 2 Goal / Goal Update NEW GOALS ADDED: 1. Patient will identify pictured items in a feild of 5-7 for utilizing a ACC communication device 2. The patient will identify the appropriate item in a simple ACC device with 65% accuracy minimla cues. Target Visit [address] Problem 3 ST Problem #[address] Goal 1 Goal / Goal Update Expressive Language/Speech/Voice 1. Complete divergent naming task by naming 3-4 items per common category with 80% acc. ( Discontinue) 05-31-24:simple, common category: 100% acc. Less familiar, or with two features (things that are SMALL and HARD): 70% acc. Had difficulty becoming creative with responses, better with concrete responses. Continue this goal. (Discontinue) 08-15-24: Discontinue goal. increased difficulty with 3 items 10-40% accuracy. 2. Complete convergent naming task with 80% acc 05-31-24: Simple: 100% acc. Add less familiar, more abstract clues. Continue this goal. 08-15-24: Discontinue goal. increased difficulty with max cues for task completion 3. Name common pictured objects/actions with 80% acc. using minimal phonemic and sentence cues by therapist. 05-31-24: Common items: 90% acc. Continue this goal with less common items. 08-15-24: Continue goal. independent naming 40-80% accuracy 4. Offer 3-5 descriptive words/phrases per common object using therapist verbal/visual cueing as needed. 05-31-24:varies, 60-80% acc. Continue this goal. 08-15-24: Discontinue due to increased difficulty. 5. Complete association tasks to facilitate recall of object names/descriptions 80% acc. 05-31-24: varies, 60-80% acc. continue this goal. 08-15-24: Discontinue due to increased difficulty 40% accuracy. 7. Participate in sentence repetition task with loudness of 77 decibels or above 80% of the time. 05-31-24:Not initiated; initiate this next period. 08-15-24: range 65-81 dB. 8. Use strategies to facilitate recall of words and thoughts so that hesitations/disruptions occur less than 20% of the time during conversation. 05-31-24: Not directly initiated; initiate this next period. 08-15-24: Discontinue due to increased difficulty. Target Visit [address] Goal 2 Goal / Goal Update NEW GOALS ADDED: 1. Patient will produce simple plosives, labials, and labio-dentals for p/b/m/k/g/t/d/ and f 2. Patient will produce simple CV combinations with completion of the above phonemes 30% accuracy moderate cues. Target Visit 10 Progress Partially Met
--- NOTE | 2024-10-23 12:24 | STOPREEVAL ---
Assessment and note entered by Sheryl Goodman, [employer] Evaluation Information Assessment Status Re-evaluation Diagnosis G45.9 Transient Cerebral Ischemic attack, R47.9 speech disturbance unspecif ICD-10 Condition Codes (ST) Dysphagia, oral phase R13.11 Subjective Information Patient was referred for a skilled ST evaluation in the beginning of March 2024 due to an increase in difficulty with speech/language skills . Patient has completed a total of [address] treatment sessions since the initial evaluation on 04-02-24. Patient and report that they continue to notice a decline in overall speech/ language skills along with cognitive skills despite practicing skills daily. The patient continues to demonstrate significant difficulty attempting to name items, describe items, complete automatic and open ended sentences, describe pictures, along with participating in simple conversational tasks. The patient's reported that the patient often gets very frustrated when attempting to communicate and this has impacted them greatly over the past several months. Over the past [address] treatment sessions the patient has shown a decline in verbal expression skills along with auditory comprehension skills. Testing was completed during the session with results below. Due the patient overall decline since initial evaluation 04-02-24 discussed with spouse goals to reflect current status and consideration of a ACC communication device to assist in communication break down with the spouse and others. The patient has a follow-up appointment with her neurologist in two weeks and is hoping for a possible diagnosis. Reported Pain Level Pain Score 0: Self Report Assessment ST Clinical Summary Patient has completed a total of [address] treatment sessions for the treatment of speech/ language skills along with memory and auditory comprehension skills since the initial evaluation on 04-02-24. The patient overall has shown a decline in all areas of speech/language and cognition. Patient and both agree that they continue to see an overall decline in skills despite use of recommended aphasia language applications to target skills. Patient continues to present with less fluent speech and an increase in difficulty producing target words with appropriate articulation and volume. Patient has recently shown a decline in ability to use yes/no correctly with use of hand gestures to indicate wants/needs with when unable to produce target word. The [facility] Adult Language Evaluation was re-administered during the session this date with significant decline in overall skills. Patient continues to exhibit issues with both receptive and expressive language. reported an increase in difficulty with cognitive skills. Results are below: Patient has shown an overall decline in most areas of auditory comprehension including; Previous testing completed 1-2-25 Simple yes/no- previous 80%, current 80% Moderate yes/no- previous 100%, current 60% Complex yes/no- previous 80%, current 20% One step direction- previous 100%, current 100% two step direction- previous 100%, current 100% three step direction- previous 50%, current 0% comprehension of complex directives- previous 50%, current 0% Reading comprehension: deficits at the 8-10 word level, complex sentences and paragraph level. Patient has shown an overall decline in most areas of verbal expression including; Previous testing completed 05-31-24 Automatic speech- previous 100%, current 30% Single word imitation- previous 100%, current 50% Phrase imitation- previous 100%, current 60% Sentence imitation- previous 100%, current 0% Automatic cued speech- previous 100%, current 40% Open ended cued speech- previous 60%, current 0% WH questions- previous 80%, current 20% Confrontational naming- previous 90%, current 70% Higher level confrontational naming- previous 80%, current 33% Object function- previous 80%, current 0% Sentence formation- previous 40%, current 0% Sentence formation in spontaneous speech: previous moderate deficits, current severe deficits Connected speech- previous moderate deficits, current severe deficits Patient continues to present with increased difficulty in oral motor movement to produce target words/phrases along with decreased volume and poor articulation skills impacting overall speech intelligibility skills. 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 Results suggest patient would benefit from continued Speech Therapy however additional testing by physicians would be beneficial in determining the cause of patient's communication difficulties. The patient is scheduled to see her neurologist in 2 weeks for possible diagnosis pertaining to decline in speech and language over past month. Recommendation for skilled Speech Therapy to continue 1-2x weekly for 10 visits to further address receptive/expressive language. Also to initiate utilization and training with simple ACC device to assist spouse and family with communication breakdown. Plan of Care Interventions Treatment of Language ST Services Indicated Yes Treatment Frequency and 1-2x/week for 10 visits Duration These treatments will address the objective and functional deficits as defined above. The patient will be advanced safely and appropriately in order for the patient to progress towards his/her prior level of function. Additional exercises will be introduced and as well as a comprehensive home exercise program upon discharge, if needed, ?to ensure carryover of functional gains achieved in the clinic. This treatment plan has been reviewed and agreement upon by the patient.
--- NOTE | 2024-11-27 09:55 | PCSTNOTE ---
Patient called & cancelled scheduled appointment this date due to sick
--- NOTE | 2024-12-04 10:50 | PCSTNOTE ---
Patient called & cancelled scheduled appointment this date due to sick
--- NOTE | 2024-12-05 11:09 | STOPDC ---
Assessment and note entered by Sheryl Goodman [employer] Evaluation Information Assessment Status Discharge - Pt Not Present Reported Pain Level Pain Score 0: Self Report Assessment ST Clinical Summary Patient has completed a total of [address] treatment sessions for the treatment of speech/ language skills along with memory and auditory comprehension skills since the initial evaluation on 04-02-24. The patient overall has shown a decline in all areas of speech/language and cognition. Patient and both agree that they continue to see an overall decline in skills despite use of recommended aphasia language applications to target skills. Patient continues to present with less fluent speech and an increase in difficulty producing target words with appropriate articulation and volume. Patient has recently shown a decline in ability to use yes/no correctly with use of hand gestures to indicate wants/needs with when unable to produce target word. The [facility] Adult Language Evaluation was re-administered during the session this date with significant decline in overall skills. Patient continues to exhibit issues with both receptive and expressive language. reported an increase in difficulty with cognitive skills. Results are below: Patient has shown an overall decline in most areas of auditory comprehension including; Previous testing completed 05-31-24 Simple yes/no- previous 80%, current 80% Moderate yes/no- previous 100%, current 60% Complex yes/no- previous 80%, current 20% One step direction- previous 100%, current 100% two step direction- previous 100%, current 100% three step direction- previous 50%, current 0% comprehension of complex directives- previous 50%, current 0% Reading comprehension: deficits at the 8-10 word level, complex sentences and paragraph level. Patient has shown an overall decline in most areas of verbal expression including; Previous testing completed 05-31-24 Automatic speech- previous 100%, current 30% Single word imitation- previous 100%, current 50% Phrase imitation- previous 100%, current 60% Sentence imitation- previous 100%, current 0% Automatic cued speech- previous 100%, current 40% Open ended cued speech- previous 60%, current 0% WH questions- previous 80%, current 20% Confrontational naming- previous 90%, current 70% Higher level confrontational naming- previous 80%, current 33% Object function- previous 80%, current 0% Sentence formation- previous 40%, current 0% Sentence formation in spontaneous speech: previous moderate deficits, current severe deficits Connected speech- previous moderate deficits, current severe deficits Patient continues to present with increased difficulty in oral motor movement to produce target words/phrases along with decreased volume and poor articulation skills impacting overall speech intelligibility skills. 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 Results suggest patient would benefit from continued Speech Therapy however additional testing by physicians would be beneficial in determining the cause of patient's communication difficulties. The patient is scheduled to see her neurologist in 2 weeks for possible diagnosis pertaining to decline in speech and language over past month. Recommendation for skilled Speech Therapy to continue 1-2x weekly for 10 visits to further address receptive/expressive language. Also to initiate utilization and training with simple ACC device to assist spouse and family with communication breakdown. Plan of Care ST Services Indicated Yes
== END 2024-12-05 11:44 | disposition home or self-care (01) ==
LOC: ANHST 10:00
PROVIDERS: PCP Family Medicine; Visit Provider Family Medicine
DX: F80.2 Mixed receptive-expressive language disorder (principal); I69.328 Other speech and language deficits following cerebral infarction; F44.4 Conversion disorder with motor symptom or deficit
CPT/HCPCS: 92507; 92523